=== PATIENT | female | born 1930 | race Caucasian/White ===

== ENCOUNTER 2019-08-10 17:17 | Inpatient (IN) | payer MEDICARE ==
[~2019-08-10] VITALS: Ht 149.9 cm; Wt 57.8 kg
[2019-08-10] MEDS ORDERED: LEVOTHYROXINE100 MCG PO (17:32)
[2019-08-10] MEDS ORDERED: SIMVASTATIN20 MG PO (17:32)
[2019-08-10] MEDS ORDERED: LATANOPROST2.5 ML OU (17:32)
[2019-08-10] MEDS ORDERED: LOSARTAN-HCTZ1 EACH PO (17:32)
--- NOTE | 2019-08-10 23:19 | NUR ---
ADMIT TO RM 128 PER STRETCHER. ABLE TO MOVE SELF WITH MINIMAL ASSISTANCE FROM STRETCER TO BED. HAS HARSH NONPRODUCTIVE COUGH. RT IN AND PT USED CORONET. GIVEN ROBITUSSIN COUGH SYRUP. HS MEDS GIVEN, SWALLOWS WELL. STATES BREATHING IS OK. HAS CALL LIGHT AND INSTRUCTED NOT TO GET UP WITHOUT CALLING. PT STATES SHE UNDERSTANDS. INFORMED THAT WILL RECHECK LABS AT 0300.
--- NOTE | 2019-08-11 00:25 | NUR ---
EYES CLOSED, RESP REG. HR 77. COUHGING MUCH LESS NOW. WILL ALLOW TO REST.
--- NOTE | 2019-08-11 01:20 | NUR ---
AWAKENED, STATES HAS BEEN DOZING OFF AND ON. HAS BEEN COUGHING LESS. ASSISTED TO BSC WITH 1 PERSON TO VOID. TOBIN WELL.
--- NOTE | 2019-08-11 03:04 | NUR ---
AWAKENED FOR LABS. NO C/O.
--- NOTE | 2019-08-11 03:50 | NUR ---
NA IS 123, WILL CONT IVF.
--- NOTE | 2019-08-11 04:46 | NUR ---
AWAKE, UP TO BSC TO VOID. REQUIRES MINIMAL ASSIST. TOBIN BEING UP WELL. NEB TX GIVEN PER RT. HS BEEN COUGHING LESS.
--- NOTE | 2019-08-11 06:21 | NUR ---
SLEEPING AT THIS TIME. NO CHANGE.
[2019-08-11] MEDS ORDERED: PRILOSEC OTC20 MG PO (06:55)
--- NOTE | 2019-08-11 07:30 | NUR ---
REPORT RECIEVED. PATIENT IS RESTING IN BED.
--- NOTE | 2019-08-11 08:00 | NUR ---
ASSESSMENT DONE. DENIES PAIN. TALKED WITH PATIENT ABOUT POC FOR DAY, INDICATES UNDERSTANDING. IVF PATENT. O2 AT [address]
--- NOTE | 2019-08-11 08:00 | NUR ---
In and spoke with Pat. She lives in [place] with her spouse Nish. She is retired from [employer]. Has grab bars and walker, straightedge worker chair, and wc. State she has had her daughter take over doing her books. Pt would like to dc to home when released. She is considering hiring a caregiver.
--- NOTE | 2019-08-11 08:30 | NUR ---
SOMEWHAT ANXIOUS AFTER NEB TREATMENT. HR 115. PRIOR TO NEB TREATMENT HR 90'S.
--- NOTE | 2019-08-11 09:20 | NUR ---
UP TO COMMODE TO VOID QS AMOUNT OF URINE. IS SHORT OF BREATH WITH EXERTION WHEN UP TO COMMODE, AM CARES DONE. HR TO 130 WITH EXERTION.
--- NOTE | 2019-08-11 09:45 | NUR ---
BACK TO BED. VERY TIRED AFTER AM CARES. WORK OF BREATHING INCREASED WITH EXERTION.
--- NOTE | 2019-08-11 09:45 | NUR ---
DR. VAZQUEZ HERE TO SEE PATIENT, ORDERS RECIEVED.
--- NOTE | 2019-08-11 10:20 | NUR ---
VEST THERAPY DONE. REMAINS ON RA. O2 SAT 94. RR-24.
--- NOTE | 2019-08-11 11:27 | NUR ---
SLEEPING, NO DISTRESS NOTED. O2 ON AT 1 L NC.
--- NOTE | 2019-08-11 11:50 | EKG ---
[facility] [address] [place], [place] [address] Signed Normal sinus rhythm Inferior infarct , age undetermined Cannot rule out Anterior infarct , age undetermined Abnormal ECG No previous ECGs available Confirmed by AME VAZQUEZ DO ([id number]) on 08/11/2019 11:50:22 AM Electronically Signed By: AME VAZQUEZ DO 08/11/19 1150 PATIENT NAME: CISCO WAGONER WILLIS Electrocardiogram DATE OF : [birth year] PHYSICIAN: AME VAZQUEZ DO REPORT #: [id number] REPORT IS CONFIDENTIAL AND NOT TO BE RELEASED WITHOUT AUTHORIZATION
--- NOTE | 2019-08-11 11:55 | NUR ---
BLOOD DRAWN. THEN OOB TO AMBULATE IN [place] WITH ASSIST. O2 AT 2 L ON WHILE AMBULATING.
--- NOTE | 2019-08-11 12:10 | NUR ---
AMBULATED IN HALLWAY, TOLERATED FAIR. HR TO 117.
--- NOTE | 2019-08-11 14:48 | NUR ---
REPORT RECIEVED FROM MORTEZA MANCERA.
--- NOTE | 2019-08-11 14:50 | NUR ---
REPORT TO MED-SURG. MONITOR CARLITA'Rudy.
--- NOTE | 2019-08-11 15:00 | NUR ---
TO MED-SURG VIA BED.
--- NOTE | 2019-08-11 15:26 | NUR ---
PATIENT ARRIVED BY BED TO ROOM 111, USING 1L02 AT REST, PATIENT HAS PRODUCTIVE SOUNDING COUGH, COARSE LUNG SOUNDS, POOR APPETITE. PATIENT HAS ORDERED DINNER 1/4 PORTION OF HOT TURKEY SANDWICH. PATIENT DENIES PAIN. PATIENT ORIENTED TO ROOM, DENIES OTHER NEEDS AT THIS TIME.
--- NOTE | 2019-08-11 16:42 | NUR ---
MORTEZA PELLETIER, IN TO DO EDUCATION WITH PATIENT.
--- NOTE | 2019-08-11 17:41 | NUR ---
PATIENT SITTING UP IN BED. SON IN ROOM. VITAL SIGNS AND I&O DONE. CALL LIGHT WITHIN REACH. NO OTHER NEEDS AT THIS TIME
--- NOTE | 2019-08-11 17:57 | NUR ---
PATIENT DID WELL WITH SMALLER PORTION DINNER TONIGHT (1/2 PORTIONS) PATIENT RESTING IN BED, DENIES NEEDS, IS LOOKING AT THE MENU FOR BREAKFAST ORDER. PATIENT REPORTS THAT HER APPETITE IS IMPROVING.
--- NOTE | 2019-08-11 19:56 | NUR ---
PATIENT RESTING QUIETLY IN BED, NO NEEDS AT THIS TIME, WILL RETURN FOR ASSESSMENT, CALL LIGHT IN REACH.
--- NOTE | 2019-08-11 20:21 | NUR ---
ROUNDED CHARGE. PATIENT IS RESTING IN BED. RAVI PRO PRESENT IN THE ROOM. PATIENT DENIES ANY NEEDS. CALL LIGHT IN REACH.
--- NOTE | 2019-08-11 20:26 | NUR ---
PATIENT READY FOR BED. PM MEDS GIVEN, WATER REFILLED, CALL LIGHT IN REACH. PATIENT ALSO REQUESTED MEDS FOR COUGH WHICH WERE GIVEN. NO THER NEEDS AT THIS TIME. CALL LIGHT IN REACH AND LIGHTS TURNED DOWN.
--- NOTE | 2019-08-11 23:09 | NUR ---
PATIENT RESTING QUIETLY, RESPIRATIONS REGULAR AND EVEN, EYES CLOSED, CAN BE SEEN FROM THE NURSES STATION, CALL LIGHT IN REACH.
--- NOTE | 2019-08-12 02:01 | NUR ---
PATIENT RESTING QUIETLY, EYES CLOSED, RESPIRATIONS REGULAR AND EVEN, CALL LIGHT IN REACH AND PATIENT CAN BE OBSERVED FROM THE NURSES STATION.
--- NOTE | 2019-08-12 03:10 | NUR ---
PATIENT RESTING QUIETLY,RESPIRATIONS REGULAR AND EVEN ON 1L/NC, EYES CLOSED, CALL LIGHT IN REACH, PATIENT CAN BE SEEN FROM THE NURSES DESK.
--- NOTE | 2019-08-12 04:57 | NUR ---
PATIENT SAYS,"I SLEPT WELL." PATIENT GOING TO GET A CAT NAP UNTIL BREAKFAST. IV PATENT AND INFUSING AT 100MLS/HR. PATIENT REMAINS ON 1L/NC WITH A DRY COUGH. JUST UP TO THE BATHROOM AND BACK TO BED WITH 1PA AND FWW. CALL LIGHT IN REACH AND VS STABLE.
--- NOTE | 2019-08-12 06:49 | NUR ---
PATIENT WAS UP 2 X DURING THE NIGHT TO THE BATHROOM, WITH FWW 1 PSTAND BY, FRESH WATER GIVEN AND CALL LIGHT IN REACH
--- NOTE | 2019-08-12 07:33 | NUR ---
0709: Report received from Sanju PRO. Call jamison within reach. Pt denies any needs at this time.
--- NOTE | 2019-08-12 10:01 | NUR ---
MED REC COMPLETE
--- NOTE | 2019-08-12 10:03 | NUR ---
PT RESTING IN HER CHAIR AFTER HAVING WORKED WITH PHYSICAL THERAPY. HER SAT ON RA IS 94% AT THIS TIME AND SHE DENIES ANY SOB WITH THERAPY OR NOW AT REST. SHE IS NOW VISITING WITH HER SPOUSE, PETE VALENZUELA WITHIN REACH.
--- NOTE | 2019-08-12 11:00 | NUR ---
Spoke with pt and her spouse. She plans on dc today. Denies need for any equipment. Pamphlet for [employer] service given as she is considering a caregiver to assist her. Information given on [employer]. Pt and deny concern for discharge.
--- NOTE | 2019-08-12 11:13 | NUR ---
AFTER I DID HER VITALS WE WENT INTO THE BATHROOM AND WHILE SHE WAS SITTING ON THE TOILET SHE DID HER BED BATH I HELPED HER WITH WASHING HER BACK. PATIENT BRUSHED HER TEETH AND WASHED HER FACE. PATIENT IS NOW SITTING IN HER CHAIR VISITING.
[2019-08-12] MEDS ORDERED: LOSARTAN POTASS50 MG PO (12:58)
[2019-08-12] MEDS ORDERED: AZITHROMYCIN250 MG PO (12:58)
--- NOTE | 2019-08-12 13:33 | NUR ---
RIGHT AC SL REMOVED WITH CATHETER INTACT, VITALS ARE STABLE. PATIENT WISHES TO GO OVER DISCHARGE INSTRUCTIONS WITH SPOUSE WHEN HE RETURNS WITH HER CLOTHING.
== END 2019-08-12 14:10 | disposition home or self-care (01) | DRG 189 ==
LOC: ED 17:17 → CCU 21:29 → MS 08-11 15:06
PROVIDERS: ADMIT Student in an Organized Health Care Education/Training Program
DX: J96.01 Acute respiratory failure with hypoxia (principal); E87.1 Hypo-osmolality and hyponatremia; J40 Bronchitis, not specified as acute or chronic; J98.01 Acute bronchospasm; E87.6 Hypokalemia; I10 Essential (primary) hypertension; E03.9 Hypothyroidism, unspecified; Z79.899 Other long term (current) drug therapy; Z66 Do not resuscitate
CPT/HCPCS: 36415; 80048; 80053; 81001; 83735; 83880; 83935; 84295; 84300; 84484; 85025; 93005; 93010; 94640; 94667; 94668; 94760; 94761; 97116; 97162; 97530; 99284-25; J1650; J2920; J7030; J7040